=== PATIENT | male | born 2005 | race Caucasian/White ===

== ENCOUNTER 2024-05-18 16:01 | Emergency (ER) | payer OTHER, SELFPAY ==
[2024-05-18 16:04] VITALS: BP 146/85; PULSE 72; RESP 16; TEMP 36.6; O2SAT 99
--- NOTE | 2024-05-18 17:43 | ED_ITS ---
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 The notable chemicals were surfactant, ethanol, sodium hydroxide and possibly hydrocarbons. Patient reports he flushed his eyes for approximately 10 minutes after chemical exposure. He reports the chemicals also splattered on his R forehead and dripped down his right leg. There are multiple, linear (from drips), closed conn on his RLE (calf) and two on his R forehead above his eye. Patient is unsure whether or not he inhaled or swallowed any of the chemical. He endorses bilateral eye stinging, redness, and visual changes. Patient denies shortness of breath, numbness/tingling /weakness, or chest pain. GENERAL: Well-appearing, well-nourished, and in no acute distress. HEAD: Normocephalic, atraumatic. CHEST: Clear to auscultation. ?No respiratory distress. HEART: Regular rate and rhythm.? NEURO: ?Alert and oriented x3. Patient screened in triage and initial orders placed.? ?Additional care and disposition to be based upon?diagnostic testing and treatment. <Maral Hankins APRN - Last Filed: 05/18/24 17:52> History of Present Illness HPI Narrative: Agree with HPI. Chemical appears to be a basic solution. He has no visual change at this time. He has had 30 minutes total of eye wash. He has scleral injection. No foreign body sensation. <Armin Villareal MD - Last Filed: 05/18/24 21:48> Related Data Allergies/adverse reactions: Allergies Allergy/AdvReac Type Severity Reaction Status Date / Time No Known Allergies Allergy Verified 05/18/24 20:22 <Maral Hankins APRN - Last Filed: 05/18/24 17:52> Review of Systems Constitutional: Constitutional: Reports no additional constitutional complaints <Armin Villareal MD - Last Filed: 05/18/24 21:48> Eyes: Eyes: Denies change in vision and Denies photophobia <Armin Villareal MD - Last Filed: 05/18/24 21:48> Comments: Eye irritation <Armin Villareal MD - Last Filed: 05/18/24 21:48> ENT: Reports system reviewed and no additional complaints, except as documented <Armin Villareal MD - Last Filed: 05/18/24 21:48> PMFSH Past Medical History Medical History: Medical History (Updated 05/18/24 @ 21:46 by Armin Villareal MD) Healthy adult male <Maral Hankins APRN - Last Filed: 05/18/24 17:52> Surgical History Surgical History: Surgical History (Updated 05/18/24 @ 21:46 by Armin Villareal MD) No pertinent past surgical history <Maral Hankins APRN - Last Filed: 05/18/24 17:52> Exam Narrative: GENERAL: Well-appearing, well-nourished, and in no acute distress. HEAD: Normocephalic, atraumatic. EYES: PERRLA and EOMI. sclera injected bilaterally. Conjunctiva injected. No discharge. Fluorescein staining bilaterally with magnification and no abrasions or fluorescein uptake. Visual acuity 20/30 in each eye without correction. No foreign body. Eyelid eversion performed and normal. ENT: Mucous membranes moist. EXTREMITIES: Normal range of motion. No edema. NEURO: Alert and oriented x3. PSYCH: Normal mood and affect. <Armin Villareal MD - Last Filed: 05/18/24 21:48> Course Course Emergency Course: patient resting comfortably. Given reassurance. Recommend oral anti-in flammatories and artificial tears. <Armin Villareal MD - Last Filed: 05/18/24 21:48> Vital Signs Vital signs: Vital Signs Temperature 97.8 F 05/18/24 16:04 Pulse Rate 72 05/18/24 16:04 Respiratory Rate 16 05/18/24 16:04 Blood Pressure 146/85 H 05/18/24 16:04 Pulse Oximetry 99 05/18/24 16:04 Temperature 97.8 F 05/18/24 20:53 Pulse Rate 67 05/18/24 20:53 Respiratory Rate 18 05/18/24 20:53 Blood Pressure 147/88 H 05/18/24 20:53 Pulse Oximetry 99 05/18/24 20:53 <Maral Hankins APRN - Last Filed: 05/18/24 17:52> Vital Signs Temperature 97.8 F 05/18/24 16:04 Pulse Rate 72 05/18/24 16:04 Respiratory Rate 16 05/18/24 16:04 Blood Pressure 146/85 H 05/18/24 16:04 Pulse Oximetry 99 05/18/24 16:04 Temperature 97.8 F 05/18/24 20:53 Pulse Rate 67 05/18/24 20:53 Respiratory Rate 18 05/18/24 20:53 Blood Pressure 147/88 H 05/18/24 20:53 Pulse Oximetry 99 05/18/24 20:53 <Armin Villareal MD - Last Filed: 05/18/24 21:48> Discharge Plan Discharge Clinical Impression: Acute chemical conjunctivitis of both eyes <Maral Hankins APRN - Last Filed: 05/18/24 17:52> Patient Disposition: Home, Self-Care <Maral Hankins APRN - Last Filed: 05/18/24 17:52> Condition: Stable <Maral Hankins APRN - Last Filed: 05/18/24 17:52> Instructions: Chemical Eye Conn (ED) <Maral Hankins APRN - Last Filed: 05/18/24 17:52> Additional Instructions: Return to an ER if you are vision is worsening. You may also follow-up with an eye doctor. It is recommended you buy some artificial tears to help soothe her discomfort as well as take scheduled anti-inflammatory medication. <Marla Hankins APRN - Last Filed: 05/18/24 17:52> Prescriptions: New Artificial Tears (cmc) 1 % drops 1 drp EACH EYE 4-6XD PRN (Reason: dry eye(s)) Qty: 15 0RF naproxen 375 mg tablet 375 mg PO BID Qty: 14 0RF <Maral Hankins APRN - Last Filed: 05/18/24 17:52> Follow-up/Referrals: PHYSICIAN NOT ON STAFF,NONSTAFF [Primary Care Provider] - 1 Week <Maral Hankins APRN - Last Filed: 05/18/24 17:52>
--- NOTE | 2024-05-18 18:14 | PC.NURSE ---
Eyes irrigated at eyewash station for 20 min. Tolerated well.
[2024-05-18 18:28] VITALS: BP 142/74; PULSE 68; RESP 16; TEMP 36.4; O2SAT 100
[2024-05-18] MEDS: Please add drug allergy info to patient profile. 1 EACH XX (20:22)
[2024-05-18 20:53] VITALS: BP 147/88; PULSE 67; RESP 18; TEMP 36.6; O2SAT 99
== END 2024-05-18 20:54 | disposition home or self-care (01) ==
PROVIDERS: Emergency Provider Emergency Medicine
DX: T54.3X1A Toxic effect of corrosive alkalis and alkali-like substances, accidental (unintentional), initial encounter (principal); T51.0X1A Toxic effect of ethanol, accidental (unintentional), initial encounter; T55.1X1A Toxic effect of detergents, accidental (unintentional), initial encounter; H10.213 Acute toxic conjunctivitis, bilateral
CPT/HCPCS: 99283